=== PATIENT | male | born 1990 | race Caucasian/White ===

== ENCOUNTER 2024-03-18 11:46 | Emergency (ER) | payer MEDICAID, SELFPAY ==
[2024-03-18 11:47] VITALS: BP 149/105; PULSE 80; RESP 14; TEMP 36.1; O2SAT 99; BMI 27.6
--- NOTE | 2024-03-18 12:00 | CT_ITS ---
STUDY: CT ABDOMEN AND PELVIS WITHOUT CONTRAST REASON FOR EXAM: Male, 33 years old. Kidney Stone. Left flank pain and left testicular pain. RADIATION DOSAGE (If Supplied By Facility): CTDIvol = ( 9.32 ) mGy, DLP = ( 481.82 ) mGycm TECHNIQUE: Transaxial images were obtained from the dome of the diaphragm to the symphysis pubis without oral contrast, and without intravenous contrast. Sagittal and coronal images were reconstructed. Individualized dose optimization techniques were used for this CT. COMPARISON: None. FINDINGS: The visualized lung bases are unremarkable. The visualized portions of the heart are within normal limits. Normal liver. Normal gallbladder and extrahepatic biliary system. Normal spleen. Normal pancreas. Normal bilateral adrenal glands. Normal right kidney. Mild degree of left hydronephrosis and hydroureter due to a 4.7 mm calculus at the left ureterovesical junction. Normal visualized stomach. Normal small intestine. Normal colon. The appendix is visualized and appears normal. Normal abdominal aorta. Normal inferior vena cava. There is a 5.4 cm x 3.7 cm mass with rim-like calcification in the region of the left renal hilus. This may represent a focally enlarged lymph node. Clinical correlation recommended. Normal urinary bladder. Normal abdominal wall. Normal osseous structures. CT/Abdomen/Pelvis without Cont IMPRESSION: 4.7 mm calculus at the left ureterovesical junction causing mild degree of left hydronephrosis. 5.4 cm x 3.7 cm soft tissue mass in the region of the left renal hilum with evidence of rim-like calcification. An enlarged lymph node should be ruled out. Electronically Signed: Miguel Wolf MD at 12:41 EDT ,
--- NOTE | 2024-03-18 12:01 | EX.ED.DYSGE1 ---
HPI <DOMINGA Thomas - Last Filed: 03/18/24 14:24> History of Present Illness Chief Complaint: Flank Pain Narrative Narrative: Patient presenting today with left flank pain that radiates into his left lower quadrant, left groin, and left testicle that started yesterday evening. He reports that the pain is waxing and waning. He does become nauseous when the pain is at its worst. The pain began radiating into his testicle this morning, prompting him to come in for evaluation. He denies any history of kidney stones. He reports that he has been constipated over the last few days. He denies any history of abdominal surgery. He denies fevers, chills, vomiting, and diarrhea. He denies a PMH of any chronic health conditions. PFSH <DOMINGA Thomas - Last Filed: 03/18/24 14:24> PFSH Medical History GERD (gastroesophageal reflux disease) Home Medications ?Medication ?Instructions ?Recorded ?Last Taken ?Type ibuprofen 600 mg tablet 600 mg PO Q6H PRN PRN pain #20 03/18/24 Unknown Rx TABLETS ondansetron 4 mg disintegrating 4 mg PO Q8H PRN PRN Nausea #10 tabs 03/18/24 Unknown Rx tablet oxycodone-acetaminophen 5 mg-325 1 tab PO Q8H PRN pain 3 days #10 03/18/24 Unknown Rx mg tablet (Percocet) tabs tamsulosin 0.4 mg capsule (Flomax) 0.4 mg PO DAILY #7 caps 03/18/24 Unknown Rx Allergy/AdvReac Type Severity Reaction Status Date / Time No Known Allergies Allergy Verified 03/18/24 11:47 Social History Smoking Status: Never smoker ROS <DOMINGA Thomas - Last Filed: 03/18/24 14:24> ROS ED Constitutional Constitutional ED: Denies chills or fever(s) Cardiovascular Cardiovascular: Denies chest pain Respiratory/Chest Respiratory/Chest: Denies dyspnea Gastrointestinal Gastrointestinal: Reports abdominal pain, constipation and nausea; Denies diarrhea or vomiting Genitourinary Genitourinary ED: Denies dysuria or hematuria Musculoskeletal Musculoskeletal: Reports back pain Integumentary Denies rash Neurologic Neurologic: Denies weakness EXAM <DOMINGA Thomas - Last Filed: 03/18/24 14:24> Physical Exam Const Vital Signs: 03/18/24 11:47 03/18/24 13:40 Temperature 97 F L 97.6 F L Temperature Source Temporal Pulse Rate 80 61 Respiratory Rate 14 18 Blood Pressure 149/105 H 124/71 H Blood Pressure Mean 119 88 Pulse Ox 99 99 Oxygen Delivery Method Room Air Positive well nourished, well developed and no apparent distress General Appearance ED: well developed HEENT Reports normocephalic and head/scalp atraumatic Mouth ED: Yes moist mucous membranes normal Eyes PERRL and EOMs intact bilaterally Neck full ROM and supple Chest Wall inspection of chest normal Resp normal respiratory effort and clear to auscultation bilaterally Cardio regular rate and regular rhythm GI soft to palpation, non-tender, non-distended and no masses Palpation: Negative for guarding Back/Spine normal ROM and normal to inspection General Back: CVA tenderness left Extremity normal to inspection and full ROM Neuro oriented x3, CN's II-XII intact bilaterally, moves all extremities, no focal motor deficits and no sensory deficits noted Sensorium / Orientation: awake and alert Psych mental status grossly normal and thought process normal Skin no rashes or lesions noted and no wounds <Dr. Hoda Rubalcava, - Last Filed: 03/28/24 15:37> Physical Exam Const Vital Signs: 03/18/24 11:47 03/18/24 13:40 Temperature 97 F L 97.6 F L Temperature Source Temporal Pulse Rate 80 61 Respiratory Rate 14 18 Blood Pressure 149/105 H 124/71 H Blood Pressure Mean 119 88 Pulse Ox 99 99 Oxygen Delivery Method Room Air MDM <DOMINGA Thomas - Last Filed: 03/18/24 14:24> [facility] Narrative Medical decision making narrative: Patient presenting with left flank pain that radiates into the left groin and left testicle. He does have left CVA tenderness. Examination is concerning for a kidney stone. Patient given IV fluids, Zofran, and Toradol. Labs will be obtained to rule out leukocytosis, anemia, electrolyte abnormality, ERIKA, and UTI. CT of the abdomen and pelvis will be obtained to rule out kidney stone, diverticulitis, bowel obstruction, appendicitis, and other etiology. His labs overall are unremarkable. CT scan does show a left 4.7 mm calculus at the UVJ. On reexamination he does report improvement of his pain, he does not want any additional analgesia due to driving here today. I will give him a prescription for Percocet, Zofran, Flomax, and ibuprofen. CT scan also shows a soft tissue mass at the region of the left renal hilum that likely represents a lymph node, this was communicated with the patient and he is to have this reexamined by his PCP or urology. Return instructions given and patient discharged home in stable condition. Lab Data Attestation: I reviewed the patient's lab results. Labs: Laboratory Results - last 24 hr 03/18/24 12:15 WBC 7.2 RBC 5.32 Hgb 15.2 Hct 46.9 MCV 88.2 MCH 28.6 MCHC 32.4 RDW Std Deviation 42.6 RDW Coeff of Ramiro 13.2 Plt Count 328 MPV 10.3 Immature Gran % (Auto) 0.300 Neut % (Auto) 72.5 H Lymph % (Auto) 19.1 [place] % (Auto) 7.3 Eos % (Auto) 0.1 Baso % (Auto) 0.7 Absolute Neuts (auto) 5.2 Absolute Lymphs (auto) 1.37 Nucleated RBC % 0 Sodium 137 Potassium 3.7 Chloride 103 Carbon Dioxide 27.0 Anion Gap 7 BUN 12 Creatinine 1.22 Estim Creat Clear Calc 90.01 Est GFR (MDRD) Af Amer 87 Est GFR (MDRD) Non-Af 72 BUN/Creatinine Ratio 9.8 L Glucose 106 Calcium 9.5 Urine Color Yellow Urine Clarity Clear Urine pH 7.0 Ur Specific [place] 1.010 Urine Protein 15 H Urine Glucose (UA) Normal Urine Ketones Negative Urine Occult Blood 250 H Urine Nitrite Negative Urine Bilirubin Negative Urine Urobilinogen Normal Ur Leukocyte Esterase Negative Urine RBC 10-25 SEEN Urine WBC 0-5 SEEN Ur Squamous Epith Cells 0-5 SEEN Urine Bacteria RARE Urine Mucus 0 SEEN Radiography Diagnostic Testing: Clinical Impression(s) from Imaging Studies Abdomen/Pelvis CT 03/18/24 12:00 IMPRESSION: 4.7 mm calculus at the left ureterovesical junction causing mild degree of left hydronephrosis. 5.4 cm x 3.7 cm soft tissue mass in the region of the left renal hilum with evidence of rim-like calcification. An enlarged lymph node should be ruled out. Electronically Signed: Miguel Wolf MD at 12:41 EDT , <Dr. Hoda Rubalcava, DO - Last Filed: 03/28/24 15:37> [facility] Narrative Medical decision making narrative: Patient presenting with left flank pain that radiates into the left groin and left testicle. He does have left CVA tenderness. Examination is concerning for a kidney stone. Patient given IV fluids, Zofran, and Toradol. Labs will be obtained to rule out leukocytosis, anemia, electrolyte abnormality, ERIKA, and UTI. CT of the abdomen and pelvis will be obtained to rule out kidney stone, diverticulitis, bowel obstruction, appendicitis, and other etiology. His labs overall are unremarkable. CT scan does show a left 4.7 mm calculus at the UVJ. On reexamination he does report improvement of his pain, he does not want any additional analgesia due to driving here today. I will give him a prescription for Percocet, Zofran, Flomax, and ibuprofen. CT scan also shows a soft tissue mass at the region of the left renal hilum that likely represents a lymph node, this was communicated with the patient and he is to have this reexamined by his PCP or urology. Return instructions given and patient discharged home in stable condition. I have personally performed a face to face assessment of the patient and have reviewed the LISY Note. I performed a substantive portion of the visit including all aspects of the following. My hardy findings include: History is Patient is a 33-year-old male presenting with left-sided flank pain rating to his groin and testicle. Not actually have testicular pain however. Vital signs significant for mildly elevated blood pressure of this could be more of a pain response. Patient is given IV fluids, Zofran and Toradol in the emergency room. Physical exam and HPI most consistent with renal colic. Kidney stone workup is obtained and patient is found to have a 4.7 mm calculus of the left UVJ with mild degree of left hydronephrosis. In addition there is incidental finding of a soft tissue mass of the left renal hilum likely to be lymph node but needs to be worked up further. Patient has adequate pain control the emergency room. His kidney function is normal and does not have signs of urinary tract infection. Therefore, I think he is good candidate for outpatient treatment. Lab work is largely unremarkable. He does have hematuria however I would expect to see this with his kidney stone. Patient is agreeable with outpatient treatment. Is given outpatient follow-up with urology. Counseled that if he does not pass the stone on his own he might require intervention with urology. He verbalized agreement understand this plan. Discharged home with symptomatic treatment (Flomax, Percocet, Zofran and Motrin). Given return precautions including developing fever or intractable pain. Other additions or changes: [None] Lab Data Labs: Laboratory Results - last 24 hr 03/18/24 12:15 WBC 7.2 RBC 5.32 Hgb 15.2 Hct 46.9 MCV 88.2 MCH 28.6 MCHC 32.4 RDW Std Deviation 42.6 RDW Coeff of Ramiro 13.2 Plt Count 328 MPV 10.3 Immature Gran % (Auto) 0.300 Neut % (Auto) 72.5 H Lymph % (Auto) 19.1 [place] % (Auto) 7.3 Eos % (Auto) 0.1 Baso % (Auto) 0.7 Absolute Neuts (auto) 5.2 Absolute Lymphs (auto) 1.37 Nucleated RBC % 0 Sodium 137 Potassium 3.7 Chloride 103 Carbon Dioxide 27.0 Anion Gap 7 BUN 12 Creatinine 1.22 Estim Creat Clear Calc 90.01 Est GFR (MDRD) Af Amer 87 Est GFR (MDRD) Non-Af 72 BUN/Creatinine Ratio 9.8 L Glucose 106 Calcium 9.5 Urine Color Yellow Urine Clarity Clear Urine pH 7.0 Ur Specific [place] 1.010 Urine Protein 15 H Urine Glucose (UA) Normal Urine Ketones Negative Urine Occult Blood 250 H Urine Nitrite Negative Urine Bilirubin Negative Urine Urobilinogen Normal Ur Leukocyte Esterase Negative Urine RBC 10-25 SEEN Urine WBC 0-5 SEEN Ur Squamous Epith Cells 0-5 SEEN Urine Bacteria RARE Urine Mucus 0 SEEN Radiography Diagnostic Testing: Clinical Impression(s) from Imaging Studies Abdomen/Pelvis CT 03/18/24 12:00 IMPRESSION: 4.7 mm calculus at the left ureterovesical junction causing mild degree of left hydronephrosis. 5.4 cm x 3.7 cm soft tissue mass in the region of the left renal hilum with evidence of rim-like calcification. An enlarged lymph node should be ruled out. Electronically Signed: Miguel Wolf MD at 12:41 EDT , Discharge Plan Triage Chief Complaint: Flank Pain ED Midlevel Provider: Harper Barbosa ED Provider: Hoda Rubalcava Dx/Rx/DC Orders Clinical Impression: Kidney stone on left side Instructions: ED Kidney Stone with Pain Prescriptions: New tamsulosin [Flomax] 0.4 mg capsule 0.4 mg PO DAILY Qty: 7 0RF ondansetron 4 mg tablet,disintegrating 4 mg PO Q8H PRN PRN (Reason: Nausea) Qty: 10 0RF oxycodone-acetaminophen [Percocet] 5-325 mg tablet 1 tab PO Q8H PRN (Reason: pain) 3 Days Qty: 10 0RF ibuprofen 600 mg tablet 600 mg PO Q6H PRN PRN (Reason: pain) Qty: 20 0RF Primary Care Provider: ALMA FITZPATRICK Referrals: ALMA FITZPATRICK [Other] Noble Chiang MD [Med Staff - Active Staff] - 3-5 Days if not improving Activity Restrictions/Additional Instructions: Please follow-up with your PCP and urology. You may need to have a repeat CT scan of your abdomen and pelvis to assess for potential renal mass/enlarged lymph node. Print Language: Yoruba Disposition Disposition: Home, Self Care Discharge Date/Time: 03/18/24 13:41
[2024-03-18] MEDS: Ondansetron 4 MG/2 ML Vial IV (12:07)
[2024-03-18] MEDS: Ketorolac 15 MG/ML Vial IV (12:08)
[2024-03-18] MEDS: 0.9% Normal Saline (1000mL) 1,000 ML 999 ML IV (12:10)
[2024-03-18 12:22] LABS: Mucous, Urine 0 SEEN /hpf (<or=2+)
[2024-03-18 12:25] LABS: Color, Urine Yellow (Yellow); Glucose, Dipstick Normal (Normal); Ketone-Dipstick Negative (Negative); Leukocyte Esterase-Dipstick Negative /ul (Negative); Nitrite-Dipstick Negative (Negative); Occult Blood-Urine 250 /ul (Negative); Protein-Dipstick 15 mg/dl (Negative); Urine Bilirubin Dipstick Negative (Negative); Urine Clarity Clear (Clear); Urine Urobilinogen Normal (Normal)
[2024-03-18 12:26] LABS: Absolute Lymphocyte Count 1.37 X10^3/uL (0.83-4.51); Absolute Neutrophil Count 5.2 X10^3/uL (2.0-7.7); Basophil# 0.05 X10^3/uL; Basophil% 0.7 % (0-1); Eosinophil# 0.01 X10^3/uL; Eosinophils% 0.1 % (0-5); Hematocrit 46.9 % (40-54); Hemoglobin 15.2 g/dL (13.0-16.5); Lymphocyte # 1.37 X10^3/ul (0.83-4.51); Lymphocyte % 19.1 % (19-41); Mean Corp Hgb Conc 32.4 g/dL (32-36); Mean Corpuscular Hgb 28.6 pg (27.0-32.0); Mean Corpuscular Volume 88.2 fL (80-94); Mean Platelet Vol. 10.3 fl (6.2-12.0); Monocyte# 0.52 X10^3/uL; Monocyte% 7.3 % (0-10); NRBC Flagged by Analyzer 0 % (0-5); Neutrophil % 72.5 % (47-70); Platelet Count 328 K/mm3 (150-450); RBC Distribution Width CV 13.2 % (11.6-14.6); RBC Distribution Width SD 42.6 fl (35.1-43.9); Red Blood Count 5.32 M/mm3 (4.6-6.2); White Blood Count 7.2 K/mm3 (4.4-11.0)
[2024-03-18 12:33] LABS: Bacteria RARE /hpf (None Seen); Red Blood Cells-Urine 10-25 SEEN /hpf (0-5); Squamous Epithelial Cells - UA 0-5 SEEN /hpf (0-5); White Blood Cells 0-5 SEEN /hpf (0-5)
[2024-03-18 12:51] LABS: Anion Gap 7 (5-15); BUN 12 mg/dL (7-18); BUN/Creat Ratio 9.8 RATIO (10-20); Calcium,Total 9.5 mg/dL (8.5-10.1); Chloride 103 mmol/L (98-107); Creatinine, Serum 1.22 mg/dL (0.70-1.30); EST Glomerular Filtration Rate 72 mL/min (>60); Est Glom Filt Rate - Afr Amer 87 mL/min (>60); Estimated Creatinine Clearance 90.01 ml/min; Glucose 106 mg/dL (74-106); Potassium 3.7 mmol/L (3.5-5.1); Sodium Level 137 mmol/L (136-145)
[2024-03-18 13:40] VITALS: BP 124/71; PULSE 61; RESP 18; TEMP 36.4; O2SAT 99
== END 2024-03-18 13:41 | disposition home or self-care (01) ==
PROVIDERS: Physician Assistant; Emergency Provider Emergency Medicine; Visit Provider Emergency Medicine
DX: N13.2 Hydronephrosis with renal and ureteral calculous obstruction (principal); R31.9 Hematuria, unspecified; R03.0 Elevated blood-pressure reading, without diagnosis of hypertension; K21.9 Gastro-esophageal reflux disease without esophagitis; Z79.899 Other long term (current) drug therapy
CPT/HCPCS: 74176; 80048; 81001; 85025; 96361; 96374; 96375; 99283; J7030; A4216; J2405